=== PATIENT | male | born 1975 | race Caucasian/White ===

== ENCOUNTER 2020-01-05 20:34 | Inpatient (IN) | payer OTHER ==
[~2020-01-05] VITALS: Ht 182.9 cm; Wt 95.3 kg
[2020-01-05 03:30] VITALS: BP 153/92
--- NOTE | 2020-01-05 20:54 | NUR ---
DR. HALEY AT BEDSIDE FOR MSE.
[2020-01-05] MEDS ORDERED: IV NORMAL SALINE 1000 ML BAG IV ONE (21:00)
[2020-01-05] MEDS ORDERED: GLUCAGON,HUMAN RECOMBINANT 1 MG VIAL IVP ONE ×2 (21:00→21:45)
[2020-01-05] MEDS ORDERED: GLUCAGON,HUMAN RECOMBINANT 1 MG VIAL ONE ×2 (21:05→21:56)
--- NOTE | 2020-01-05 21:35 | NUR ---
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
--- NOTE | 2020-01-05 22:25 | NUR ---
RECEIVED CALL FROM [employer], PT SCHEDULED FOR EGD IN AM AT [address] ELIZONDO.
[2020-01-05] MEDS ORDERED: NITROGLYCERIN 4.9 GM SPRAY TL ONE ×2 (22:42→22:45)
--- NOTE | 2020-01-06 | NUR ---
PATIENT WANTS TO WAIT BEING ADMITTED TO THE HOSPITAL, STATED THAT HE COUGHED HARD AND FELT BETTER, DENIES SOB AT THIS TIME. DR HALEY AWARE.
[2020-01-06] MEDS ORDERED: LORAZEPAM 2 MG/1 ML VIAL IV ONE (00:15)
[2020-01-06] MEDS ORDERED: LORAZEPAM 2 MG/1 ML VIAL ONE (00:16)
[2020-01-06] MEDS ORDERED: IV NORMAL SALINE 1000 ML BAG IV ONE (00:30)
--- NOTE | 2020-01-06 00:30 | NUR ---
AITVAN IV AND NS 1L GIVEN.
--- NOTE | 2020-01-06 01:30 | NUR ---
PATIENT ASLEEP AT THIS TIME, NO DISTRTESS NOTED, RESPIRATIONS EVEN AND UNLABORED. DR. HALEY AWARE.
--- NOTE | 2020-01-06 02:41 | NUR ---
Pt. admitted to M/S , under care of Dr. IZAGUIRRE Belongs List completed.
--- NOTE | 2020-01-06 03:30 | NUR ---
PATIENT RECEIVED FROM ER. V/S STABLE. NO SIGS OF ACUTE DISTRESS.
[2020-01-06 03:36] LABS: BASOPHILS % (AUTO) 0.3 % (0.0-2.0); EOSINOPHILS # (AUTO) 0.1 K/uL (0.0-0.7); EOSINOPHILS % (AUTO) 1.1 % (0.0-7.0); HEMATOCRIT 43.4 % (36.7-47.1); HEMOGLOBIN 14.9 g/dL (12.5-16.3); LYMPHOCYTES # (AUTO) 1.1 K/uL (20.0-40.0); LYMPHOCYTES % (AUTO) 9.6 % (20.5-51.5); MEAN CORPUSCULAR HGB CONC 34 g/dL (32.5-36.3); MONOCYTES # (AUTO) 0.5 K/uL (2.0-10.0); MONOCYTES % (AUTO) 4.7 % (0.0-11.0); NEUTROPHILS # (AUTO) 9.5 K/uL (1.8-8.9); NEUTROPHILS % (AUTO) 84.3 % (38.5-71.5); PLATELET COUNT (AUTO) 170 K/uL (152-348); RED BLOOD CELL COUNT(AUTO) 4.99 MIL/uL (4.06-5.63); WHITE BLOOD COUNT (AUTO) 11.3 K/uL (3.6-10.2)
--- NOTE | 2020-01-06 03:37 | NUR ---
TRANSPORTED PATIENT VIA GURNEY TO [facility], NO ACUTE DISTRESS NOTED, HAND OFF TO BRIANNA MATHEWS.
[2020-01-06 03:40] LABS: CREATININE 1.2 mg/dL (0.6-1.3); POTASSIUM 4.3 mmol/L (3.5-5.1)
--- NOTE | 2020-01-06 04:28 | NUR ---
DR. GILLETTE CONTACTED FOR ELEVATED BP AND TACHYCARDIA. NO NEW ORDERS. JUST MONITOR.
[2020-01-06] MEDS ORDERED: ZOLPIDEM 5 MG TABLET PO PRN (04:45)
[2020-01-06] MEDS ORDERED: HYDROCODONE/APAP 5-325MG TABLET PO PRN (04:45)
[2020-01-06] MEDS ORDERED: Z GUARD REMEDY PASTE 57 GM TUBE TOP PRN (04:45)
[2020-01-06] MEDS ORDERED: ACETAMINOPHEN 325 MG TABLET PO PRN (04:45)
[2020-01-06] MEDS ORDERED: ONDANSETRON 4 MG/2 ML VIAL IV PRN (04:45)
[2020-01-06] MEDS ORDERED: MAGNESIUM HYDROXIDE 30 ML LIQUID UDC PO PRN (04:45)
--- NOTE | 2020-01-06 06:05 | NUR ---
PATIENT JUST INFORMED ME THAT HE POSSIBLY THREW UP THE STEAK THAT WAS STUCK IN ESOPHAGUS. SURGERY ALREADY ON THERE WAY UP. WILL INFORM SURGERY NURSE.
--- NOTE | 2020-01-06 06:10 | NUR ---
Scarlett from surgery picked up patient. preop checklist completed. Nurse Scarlett made aware that patient threw up a piece of steak.
--- NOTE | 2020-01-06 07:30 | NUR ---
PATIENT RESTING FOR NOW, NO DISTRESS NOTED
--- NOTE | 2020-01-06 08:00 | NUR ---
AWAKE, REQUESTING TO GO HOME. MADE AWARE PLAN CARE AND DISCHARGE PROCESS. FLUIDS GIVEN REQUESTED, TOLERATED WELL.
--- NOTE | 2020-01-06 10:00 | NUR ---
resting well. anxious to go home. awaiting md discharge
[2020-01-06 11:29] VITALS: BP 128/86
--- NOTE | 2020-01-06 11:30 | NUR ---
seen by dr perez, will discharge patient
--- NOTE | 2020-01-06 11:55 | NUR ---
discharged home with belongings and understands home instruction . left in stable condition .
[2020-01-06] MEDS ORDERED: QUETIAPINE FUMARATE 100 MG TABLET PO SCH (21:00)
== END 2020-01-06 11:55 | disposition home or self-care (01) | DRG 395 ==
LOC: ER 20:38 → MEDSURG3 01-06 02:54
PROVIDERS: ADMIT Family Medicine; ATTEND Internal Medicine
DX: T18.128A Food in esophagus causing other injury, initial encounter (principal); X58.XXXA Exposure to other specified factors, initial encounter; Y92.89 Other specified places as the place of occurrence of the external cause; K22.5 Diverticulum of esophagus, acquired; R03.0 Elevated blood-pressure reading, without diagnosis of hypertension; D72.829 Elevated white blood cell count, unspecified; K21.9 Gastro-esophageal reflux disease without esophagitis; R00.0 Tachycardia, unspecified; Z87.891 Personal history of nicotine dependence; Z82.49 Family history of ischemic heart disease and other diseases of the circulatory system; Z80.42 Family history of malignant neoplasm of prostate; Z79.899 Other long term (current) drug therapy
CPT/HCPCS: 36415; 85025; 85610; 93005; A4663; G0378; J1610; J2060; J3535; J7030